=== PATIENT | female | born 1945 | race Caucasian/White ===

== ENCOUNTER → 2018-05-11 10:39 | Outpatient (CLI) | payer MEDICARE, BC, SELFPAY ==
--- NOTE | 2018-05-11 10:43 | MM_ITS ---
MM Dig screening mamm BI w/CAD ORDERING PHYSICIAN : Fran Tsang MD PATIENT AGE: 72 years GENDER: Female COMPARISON: . April 2017, March 2016, February 2015 Also September 2009 mammogram INDICATION: ITS.REASON: SCREENING no hormones no new complaints noncontributory family history Family history. Sister with breast cancer age 60. TECHNIQUE: Standard CC and MLO images were obtained. R2 CAD reviewed. FINDINGS: .. Minimal residual fibroglandular elements with moderate fatty replacement. No dominant mass nor suspicious calcifications. Prior studies are helpful and supportive stable mammogram with no significant new findings. LEFT BREAST:No significant new findings. Follow-up in one year adequate 3 or 4 small 3 benign-appearing grouping calcifications deep left breast cc view are perhaps slightly denser but otherwise stable since 2014,, 2016. Right breast. No new areas of concern. Follow-up in one year Small 4 mm stable nodule density superior upper-outer quadrant right breast measuring less than 5 mm-not concern and unchanged studies since 2013 IMPRESSION: . Stable bilateral mammogram with no significant new findings. Bilateral follow-up in one recommended. . BI-RADS Category: 2 Benign Finding(s) RECOMMENDED FOLLOW-UP: 1YR 1 YEAR FOLLOW-UP (A letter has been sent to the patient regarding results of the study.)
== END ==
PROVIDERS: PCP Family Medicine; Visit Provider Family Medicine
DX: Z12.31 Encounter for screening mammogram for malignant neoplasm of breast (principal)
CPT/HCPCS: 77067

== ENCOUNTER → 2018-05-13 11:58 | Outpatient (CLI) | payer MEDICARE, BC, SELFPAY ==
--- NOTE | 2018-05-13 12:06 | XR_ITS ---
XR hip LT 2-3V w/pelvis HISTORY: Left-sided pain, hip pain ITS.REASON: LT SCIATICA ORDERING PHYSICIAN: Fran Tsang MD PATIENT AGE: 72 years COMPARISON: None FINDINGS: No fracture or dislocation is evident. No significant degenerative change. No lytic or blastic change. Unremarkable soft tissues IMPRESSION: Negative hip
--- NOTE | 2018-05-13 12:06 | XR_ITS ---
EXAM: XR lumbar spine min 4V HISTORY: Low back pain radiating into the left hip ITS.REASON: LT SCIATICA ORDERING PHYSICIAN: Fran Tsang MD PATIENT AGE: 72 years COMPARISON: None FINDINGS: Normal alignment. No fracture or dislocation. No lytic or blastic change. No significant degenerative change. The disc spaces are preserved. There is diffuse vascular calcification IMPRESSION: Negative lumbar spine
== END ==
PROVIDERS: PCP Family Medicine; Visit Provider Family Medicine
DX: M54.32 Sciatica, left side (principal)
CPT/HCPCS: 72110; 73502

== ENCOUNTER 2019-01-31 08:00 | Outpatient (RCR) | payer MEDICARE, BC, SELFPAY | END 2019-01-31 08:05 | disposition home or self-care (01) | LOC: PT 08:00 | PROVIDERS: PCP Family Medicine; Visit Provider Orthopaedic Surgery | DX: S83.91XA Sprain of unspecified site of right knee, initial encounter (principal) | CPT/HCPCS: 97010; 97014; 97016; 97033; 97035; 97110; 97163; G0283 ==

== ENCOUNTER → 2019-05-15 08:06 | Outpatient (CLI) | payer MEDICARE, BC, SELFPAY ==
--- NOTE | 2019-05-15 08:08 | MM_ITS ---
PROCEDURE: MM DIG SCREENING MAMM BI W/CAD Patient Age:73Y CLINICAL INDICATION: SCREENING but no hormones. No new complaints.. Patient with prior bladder cancer. Family history. Sister with breast cancer age 70 COMPARISON: DMSB DIG MAMM-SCREEN AUGUSTINE from 02/26/2014 DMSB DIG MAMM-SCREEN AUGUSTINE from 03/12/2015 DMDXUAVL DIG MAMM-DX UNI ADD VIEWS-LT from 04/03/2015 DMSB DIG MAMM-SCREEN AUGUSTINE from 04/06/2016 DMSB DIG MAMM-SCREEN AUGUSTINE W/CAD from 04/28/2017 [facility] MM Dig screening mamm BI w/CAD from 05/11/2018 TECHNIQUE: Standard CC and MLO images were obtained. R2 CAD reviewed. FINDINGS: Minimal residual fibroglandular elements with no new dominant nor suspicious mass.. No suspicious calcifications. A the is A similar bilateral breast pattern with no new areas of concern. Scant stable minor asymmetry. Bilateral follow-up 1 year IMPRESSION: Stable bilateral mammogram with no new areas of concern. bilateral follow-up 1 year BI-RAD Category: 1 Negative FOLLOW-UP: 1YR 1 Year Follow-up the (A letter has been sent to the patient regarding results of the study.) Dictated by: Estrada Cunha MD 05/15/2019 16:03 Electronically signed by Estrada Cunha MD in [place] 05/15/2019 16:03
== END ==
PROVIDERS: PCP Family Medicine; Visit Provider Family Medicine
DX: Z12.31 Encounter for screening mammogram for malignant neoplasm of breast (principal)
CPT/HCPCS: 77067

== ENCOUNTER → 2020-02-12 08:24 | Outpatient (CLI) | payer MEDICARE, BC, SELFPAY ==
--- NOTE | 2020-02-12 08:30 | XR_ITS ---
PROCEDURE: XR DEXA AXIAL SKELETON CLINICAL HISTORY: OSTEOPENIA COMPARISON: KILO SALCIDO BONE3 BONE DENSITOMETRY(HIP:LT SPINE from 02/08/2017 FINDINGS: The right hip BMD is 0.720 with a T-score of -1.8. The left hip BMD is 0.788 with a T-score of -1.3. The lumbar spine BMD is 0.831 with a T-score of -2.0. Previously the lowest density was in the spine with a T-score of -1.9 IMPRESSION: This patient is considered osteopenic according to the World Health Organization criteria. Bone density is between 10 and 25 percent below young normal. Fracture risk is moderate. Treatment is advised. Based on these results a follow-up exam is recommended in 2 year. Dictated by: Don Nunez MD 02/13/2020 12:03 Don Nunez MD in [place] 02/13/2020 12:03
== END ==
PROVIDERS: PCP Family Medicine; Visit Provider Family Medicine
DX: M85.89 Other specified disorders of bone density and structure, multiple sites (principal)
CPT/HCPCS: 77080

== ENCOUNTER → 2020-05-16 08:12 | Outpatient (CLI) | payer MEDICARE, BC, SELFPAY ==
--- NOTE | 2020-05-16 08:14 | MM_ITS ---
PROCEDURE: MM DIG SCREENING MAMM BI W/CAD Referring Doctor: Fran Tsang Patient Age:74Y CLINICAL INDICATION: SCREENING 74-year-old. Patient with history of bladder cancer no hormones, no new complaints, Family history. Sister with breast cancer COMPARISON: MG DMSB DIGITAL MAMM-SCREEN BILATERAL from 01/28/2011 MG DMSB DIGITAL MAMM-SCREEN BILATERAL from 02/05/2012 MG DMSB DIG MAMM-SCREEN AUGUSTINE from 02/26/2014 MG DMSB DIG MAMM-SCREEN AUGUSTINE from 03/12/2015 MG DMDXUAVL DIG MAMM-DX UNI ADD VIEWS-LT from 04/03/2015 MG DMSB DIG MAMM-SCREEN AUGUSTINE from 04/06/2016 MG DMSB DIG MAMM-SCREEN AUGUSTINE W/CAD from 04/28/2017 MG [facility] MM Dig screening mamm BI w/CAD from 05/11/2018 MG MM DIG SCREENING MAMM BI W/CAD from 05/15/2019 TECHNIQUE: Standard CC and MLO images were obtained. R2 CAD reviewed. Bilateral digital breast tomosynthesis included. Additional axillary CC views both breast included FINDINGS: Lower density breast with [id number] residual fibroglandular elements.; scattered fibroglandular densities. Overall architecture is similar to previous study with no new dominant or suspicious mass. No suspicious calcifications. Right breast-no interval change Small stable nodular density lateral right breast 3.5 mm size-likely intramammary node Left breast-no new areas of concern. The asymmetric area density inferior breast on MLO view is at present on multiple previous studies-dating back to 2010. This area less evident on tomosynthesis views and dissipates on CC view.. Few punctate calcifications a left breast appear stable Bilateral follow-up 1 year recommended IMPRESSION: No significant new findings . Stable mammogram. Stable mild asymmetry . Follow-up 1 year recommended BI-RAD Category: 2 Benign Finding(s) FOLLOW-UP: 1YR 1 Year Follow-up (A letter has been sent to the patient regarding results of the study.) Dictated by: Estrada Cunha MD 05/26/2020 23:05 Estrada Cunha MD in [place] 05/26/2020 23:05
== END ==
PROVIDERS: PCP Family Medicine; Visit Provider Family Medicine
DX: Z12.31 Encounter for screening mammogram for malignant neoplasm of breast (principal)
CPT/HCPCS: 77063; 77067

== ENCOUNTER → 2021-02-17 09:15 | Outpatient (CLI) | payer MEDICARE, BC, SELFPAY | PROVIDERS: PCP Family Medicine; Visit Provider Nurse Practitioner | DX: Z20.822 Contact with and (suspected) exposure to COVID-19 (principal); U07.1 COVID-19 | CPT/HCPCS: C9803; U0003; U0005 ==

== ENCOUNTER → 2021-05-16 07:39 | Outpatient (CLI) | payer MEDICARE, BC, SELFPAY ==
--- NOTE | 2021-05-16 07:43 | MM_ITS ---
PROCEDURE INFORMATION: Exam: MG Bilateral Screening 3D Mammography Exam date and time: 05/16/2021 7:43 AM Age: 75 years old Clinical indication: Screening mammogram TECHNIQUE: Imaging protocol: Bilateral screening tomosynthesis and 2D mammography including computer-aided detection (CAD) when performed. COMPARISON: 1. MG MM DIG SCREENING MAMM BI W/CAD 05/16/2020 8:32 AM 2. MG MM DIG SCREENING MAMM BI W/CAD 05/15/2019 8:19 AM 3. MG [facility] MM Dig screening mamm BI w/CAD 05/11/2018 11:11 AM 4. MG DMSB DIG MAMM-SCREEN AUGUSTINE W/CAD 04/28/2017 9:47 AM FINDINGS: MAMMOGRAPHY: Breast composition: There are scattered areas of fibroglandular density. Mass: Stable benign-appearing subcentimeter nodules are present in the bilateral breast. No new or morphologically suspicious nodule has developed to suggest malignancy. Architectural distortion: No new or suspicious architectural distortion. Calcifications: Stable benign-appearing calcifications are present. No new or suspicious cluster of microcalcifications have developed. Asymmetric density: No new or suspicious asymmetric density is present Skin thickening: None. Axillary adenopathy: None. IMPRESSION: No mammographic evidence of malignancy. Recommend annual screening mammography unless otherwise clinically indicated. ASSESSMENT: BI-RADS category 2: Benign
== END ==
PROVIDERS: PCP Family Medicine; Visit Provider Family Medicine
DX: Z12.31 Encounter for screening mammogram for malignant neoplasm of breast (principal)
CPT/HCPCS: 77063; 77067

== ENCOUNTER → 2021-06-11 09:40 | Outpatient (CLI) | payer MEDICARE, BC, SELFPAY | PROVIDERS: PCP Family Medicine; Visit Provider Nurse Practitioner | DX: Z20.822 Contact with and (suspected) exposure to COVID-19 (principal) | CPT/HCPCS: C9803; U0003; U0005 ==

== ENCOUNTER → 2021-08-11 08:57 | Outpatient (CLI) | payer MEDICARE, BC, SELFPAY | PROVIDERS: Visit Provider Internal Medicine | DX: Z01.812 Encounter for preprocedural laboratory examination (principal); Z11.52 Encounter for screening for COVID-19; Z12.11 Encounter for screening for malignant neoplasm of colon | CPT/HCPCS: C9803; U0003; U0005 ==

== ENCOUNTER → 2021-09-08 08:52 | Outpatient (CLI) | payer MEDICARE, BC, SELFPAY | PROVIDERS: Visit Provider Internal Medicine | DX: Z11.52 Encounter for screening for COVID-19 (principal) | CPT/HCPCS: 36415; C9803; U0003; U0005 ==

== ENCOUNTER 2021-09-10 07:48 | Day surgery (SDC) | payer MEDICARE, BC, SELFPAY ==
[2021-08-06 13:59] VITALS: BMI 36.1
[2021-09-10 08:25] VITALS: BP 142/78; PULSE 68; RESP 18; TEMP 36.8; O2SAT 100
[2021-09-10 08:59] VITALS: O2SAT 100
--- NOTE | 2021-09-10 09:00 | P.PN_ITS ---
[facility] Anesthesia Checklist - Patient Identification Patient Identification: Arm Band - Structural Data Admitted From: Home Planned Operative Procedure/s: colonoscopy Consent for Planned Operative Procedure(s) Verified: Yes Verified Documents: Surgical Consent, History and Physical - NPO Status Verified Time NPO: 00:00 - Additional verifications Anesthesia Reactions: No - Airway Assessment C-Spine Mobility Assessed: Yes (mp2) TMJ Mobility Assessed: Yes Dentition: Good Dentition - Neurological Assessment Level of Consciousness: Awake, Alert - Anesthesia Plan Anesthesia Risk discussed: Yes Anesthesia Plan: Verified ASA Class: II Anesthesia Type: MAC [facility] History I have reviewed the patient's past medical history: Yes Medical History: Reports:: Cancer (bladder) Denies:: Diabetes Mellitus Type 1, Diabetes Mellitus Type 2, Internal Pacemaker, MRSA, Seizures *Have you ever received a pneumonia vaccine?: Yes *Have you received a flu vaccine this season?: Yes Anesthesia experience/problems:: nac Laterality Cases: Right: Partial Knee Replacement Other Surgeries: Yes: Colonoscopy, Colon Resection, Other. No: Pacemaker Amputation: No - *Social History Last grade of school completed: Some college Smoking Status: Former smoker Alcohol Intake: current Alcohol Intake Frequency:: a few times a week Substance Use Type: denies use *Occupational Status:: retired Housing: house Household Members: spouse *Travel in the last 8 weeks: None Family Hx:: No significant family history
[2021-09-10 09:25] VITALS: BP 130/60; PULSE 65; RESP 18; TEMP 36.7; O2SAT 96
--- NOTE | 2021-09-10 09:25 | P.PCN_ITS ---
- Procedure: Date: 09/10/21 Patient Date of :: 1945 Procedure Performed:: Colonoscopy Indications:: The patient is a 76 year old who presents for surveillance colonoscopy. The patient reports last colonoscopy to be close to 10 years ago. She reports a hist ory of partial colectomy for removal of a colon polyp. She denies personal history or family history of colon cancer. Performing Provider:: Jl Keene MD Referring Provider:: Alfred Tsang MD Sedation:: See RN notes Procedure:: After placing the patient in the left lateral decubitus position, the colonoscopy was gently inserted into the rectum and under direct visualization advanced to the cecum which was identified by transillumination in the right lower quadrant, identification of the ileocecal valve, appendiceal orifice, and cecal strap. Color, texture, mucosa, and anatomy of the colon were carefully examined with the scope. Findings:: Anal canal: normal Rectum: normal Sigmoid colon: normal without polyps or inflammatory changes Descending colon: normal without polyps or inflammatory changes Splenic flexure: normal Transverse colon: normal without polyps or inflammatory changes Hepatic flexure: normal Ascending colon: normal without polyps or inflammatory changes Cecum: normal Terminal ileum: not visualized Floppy colon Recommendations:: Reassuring examination In view of age, no further surveillance colonoscopy can be recommended Complications:: None Estimated blood obtained (mL): 0
[2021-09-10 09:35] VITALS: BP 142/85; PULSE 60; RESP 18; O2SAT 99
[2021-09-10 09:45] VITALS: BP 135/71; PULSE 58; RESP 18; O2SAT 99
[2021-09-10 09:55] VITALS: BP 125/80; PULSE 59; RESP 18; O2SAT 98
== END 2021-09-10 10:11 | disposition home or self-care (01) ==
LOC: OUTP 07:50
PROVIDERS: PCP Family Medicine; Visit Provider Internal Medicine
PROC: 0DJD8ZZ Inspection of Lower Intestinal Tract, Via Natural or Artificial Opening Endoscopic (ICD-10-PCS; CPT 45378; principal; 2021-09-10 09:00)
DX: Z12.11 Encounter for screening for malignant neoplasm of colon (principal); Z86.010 Personal history of colon polyps; K56.2 Volvulus; Z85.51 Personal history of malignant neoplasm of bladder; Z79.899 Other long term (current) drug therapy
CPT/HCPCS: G0121

== ENCOUNTER → 2022-02-12 09:19 | Outpatient (CLI) | payer MEDICARE, BC, SELFPAY ==
--- NOTE | 2022-02-12 09:24 | XR_ITS ---
FINAL REPORT TECHNIQUE: Bone densitometry calculations of the lumbar spine and left hip were obtained. CLINICAL HISTORY: post menopausal COMPARISON: 02/12/2020 FINDINGS: Using L1-4, the bone mineral density of the spine is 0.833 g/cm2, was 0.831 g/cm2 corresponding to T-score of -1.9, was -2.0. Using the left hip, the bone mineral density of the femoral neck is 0.664 g/cm2, was 0.788 g/cm2 corresponding to a T-score of 1.7, was -1.3 Using the right hip, the bone mineral density of the femoral neck is 0.717 g/cm2, was 0.720 g/cm2 corresponding to a T-score of the 1.8, was -1.8 NOTE: T-score: Standard deviation compared with peak bone mass of young adult mean. *Following the recommendations of the International Society of Bone densitometry, classification of hip BMD is based on the lower of two T-scores; total hip or femoral neck. IMPRESSION: Diminished bone mineral density of the lumbar spine and left hip consistent with osteopenia. FRAX data reports major osteoporotic fracture of 10% and hip fracture of 1.8%. Reviewed, Interpreted and Dictated by Juan Ramon Berkowitz MD Transcribed by Carolyne Robles Authenticated and . [facility]
== END ==
PROVIDERS: PCP Family Medicine; Visit Provider Family Medicine
DX: Z78.0 Asymptomatic menopausal state (principal); M85.89 Other specified disorders of bone density and structure, multiple sites
CPT/HCPCS: 77080

== ENCOUNTER → 2022-05-29 07:45 | Outpatient (CLI) | payer MEDICARE, BC, SELFPAY ==
--- NOTE | 2022-05-29 07:50 | MM_ITS ---
PROCEDURE INFORMATION: Exam: MG Bilateral Screening 3D Mammography Exam date and time: 05/29/2022 8:09 AM Age: 76 years old Clinical indication: Screening examination. Her sister had breast cancer. TECHNIQUE: Imaging protocol: Bilateral Screening tomosynthesis and 2D mammography including computer-aided detection (CAD) when performed. COMPARISON: 1. MG MM DIG SCREENING MAMM BI W/CAD 05/16/2021 7:59 AM 2. MG MM DIG SCREENING MAMM BI W/CAD 05/16/2020 8:32 AM 3. MG MM DIG SCREENING MAMM BI W/CAD 05/15/2019 8:19 AM 4. MG [facility] MM Dig screening mamm BI w/CAD 05/11/2018 11:11 AM FINDINGS: MAMMOGRAPHY: Breast composition: There are scattered areas of fibroglandular density. Mass: Click no suspicious mass. Architectural distortion: None. Calcifications: No suspicious calcifications. Asymmetric density: None. Skin thickening: None. Axillary adenopathy: None. IMPRESSION: No mammographic evidence of malignancy. Annual screening is recommended unless otherwise clinically indicated. ASSESSMENT: BI-RADS Category 1: Negative
== END ==
PROVIDERS: PCP Family Medicine; Visit Provider Family Medicine
DX: Z12.31 Encounter for screening mammogram for malignant neoplasm of breast (principal)
CPT/HCPCS: 77063; 77067

== ENCOUNTER → 2022-06-11 10:32 | Outpatient (CLI) | payer MEDICARE, BC, SELFPAY ==
--- NOTE | 2022-06-11 10:36 | XR_ITS ---
FINAL REPORT CLINICAL HISTORY: Left hip pain COMPARISON: 05/13/2018 FINDINGS: LEFT HIP 3 views were obtained including an AP pelvis. There is no acute fracture or dislocation. The joint spaces are intact. There is no soft tissue abnormality. IMPRESSION: No acute bony abnormality. Reviewed, Interpreted and Dictated by Dipti Reid MD Transcribed by Yandy See Authenticated and [facility]
== END ==
PROVIDERS: PCP Family Medicine; Visit Provider Family Medicine
DX: M25.552 Pain in left hip (principal)
CPT/HCPCS: 73502

== ENCOUNTER → 2023-03-08 12:30 | Outpatient (CLI) | payer MEDICARE, BC, SELFPAY ==
--- NOTE | 2023-03-08 12:42 | XR_ITS ---
FINAL REPORT CLINICAL HISTORY: SCIATIA LEG PAIN COMPARISON: 06/11/2022 FINDINGS: LEFT HIP 2 views of the left hip are obtained. There is no acute fracture or dislocation. Visualized joint spaces are normally aligned. There are mild degenerative changes of the hips bilaterally and lower lumbar spine. Mild vascular calcifications are noted. There is no acute soft tissue abnormality. IMPRESSION: No acute bony abnormality. Reviewed, Interpreted and Dictated by Joel Murphy III, MD Transcribed by Aletha Robles Authenticated and [facility]
--- NOTE | 2023-03-08 12:42 | XR_ITS ---
FINAL REPORT CLINICAL HISTORY: SCIATIA LEG PAIN FINDINGS: 5 views of the lumbar spine were obtained. There is no evidence of fracture or dislocation. The vertebral alignment is normal. There are multilevel degenerative changes. No paraspinous soft tissue abnormalities identified. IMPRESSION: No acute bony abnormality. Reviewed, Interpreted and Dictated by Joel Murphy III, MD Transcribed by Aletha Robles Authenticated and [facility]
== END ==
PROVIDERS: PCP Family Medicine; Visit Provider Family Medicine
DX: M54.32 Sciatica, left side (principal)
CPT/HCPCS: 72110; 73502

== ENCOUNTER 2023-06-24 15:29 | Outpatient (CLI) | payer MEDICARE, BC, SELFPAY ==
--- NOTE | 2023-06-24 15:34 | MR_ITS ---
FINAL REPORT TECHNIQUE: Multiplanar MR without contrast CLINICAL HISTORY: LUMBAR RADICULOPATHY pain down left leg FINDINGS: Sagittal images show normal vertebral height. Alignment is normal. Marrow signal pattern is unremarkable. L1-2: Unremarkable L2-3: Unremarkable L3-4: Unremarkable L4-5: Minimal annular disc bulge. Moderate facet overgrowth. Mild central canal stenosis and mild bilateral neural foraminal narrowing. L5-S1: Unremarkable IMPRESSION: Degenerative disc disease at L4-5. Reviewed, Interpreted and Dictated by Denise Ojeda MD Transcribed by Carolyne Robles Authenticated and [facility]
== END 2023-06-24 23:59 ==
LOC: RAD 15:29
PROVIDERS: PCP Family Medicine; Visit Provider Family Medicine
DX: M54.16 Radiculopathy, lumbar region (principal)
CPT/HCPCS: 72148; 76376

== ENCOUNTER 2023-07-07 15:43 | Outpatient (CLI) | payer MEDICARE, BC, SELFPAY ==
--- NOTE | 2023-07-07 16:07 | MM_ITS ---
PROCEDURE INFORMATION: Exam: MG Bilateral Screening 3D Mammography Exam date and time: 07/07/2023 3:53 PM Age: 77 years old Clinical indication: Screening mammogram TECHNIQUE: Imaging protocol: Bilateral Screening tomosynthesis and 2D mammography including computer-aided detection (CAD) when performed. COMPARISON: 1. MG MM DIG SCREENING MAMM BI W/CAD 05/29/2022 8:09 AM 2. MG MM DIG SCREENING MAMM BI W/CAD 05/16/2021 7:59 AM 3. MG MM DIG SCREENING MAMM BI W/CAD 05/16/2020 8:32 AM 4. MG MM DIG SCREENING MAMM BI W/CAD 05/15/2019 8:19 AM FINDINGS: MAMMOGRAPHY: Breast composition: There are scattered areas of fibroglandular density. Mass: None. Architectural distortion: No new or suspicious architectural distortion. Calcifications: No new or suspicious calcifications are present Asymmetric density: No new or suspicious asymmetric density is present Skin thickening: None. Axillary adenopathy: None. IMPRESSION: No mammographic evidence of malignancy. Recommend annual screening mammography unless otherwise clinically indicated. ASSESSMENT: BI-RADS category 1: Negative
== END 2023-07-07 23:59 ==
PROVIDERS: PCP Family Medicine; Visit Provider Family Medicine
DX: Z12.31 Encounter for screening mammogram for malignant neoplasm of breast (principal)
CPT/HCPCS: 77063; 77067

== ENCOUNTER 2023-08-26 08:00 | Outpatient (RCR) | payer MEDICARE, BC, SELFPAY ==
--- NOTE | 2023-07-15 10:27 | HMH.PTOPEV ---
PT Outpatient Evaluation Rehab PT Outpatient Evaluation Start: 07/15/23 09:06 Freq: Status: Active Protocol: Document 07/15/23 09:07 CHRISTIAN (Rec: 07/15/23 10:27 CHRISTIAN [id number]) E-signed By Cholo Cochran, PT Outpatient Therapy Subjective History Subjective History Pt reports acute onset left LE pain and weakness beginning ~ 3 weeks ago caused by 'a fall where I yoshi rolled out into my yard.' Pt reports 'I think the weakness caused the fall because my left leg felt like it gave out.' Pt reports ~3 month h/o left LE weakness, N& T, and intermittent pain from hip to foot, denies LBP. Recent MRI of lumbar spine reveals L4-5 DDD. New diagnosis of cancer in past 12 No months? Chief Complaint Pain,Stiff,Paresthesia, Weakness Symptom Type Ache,Throb,Dull,Numbness, Tingling Symptoms Relieved By Rest/Positioning,Heat Symptoms Aggravated By Physical Activity,Walking Prior Functional Limitations Housework,Standing,Walking Current Functional Limitations Housework,Standing,Walking Symptom Description Constant but Variable Level of pain today (0-10) 5 Pain scale - at its best (0-10) 5 Pain scale - at its worst (0-10) 8 Lumbopelvic Eval Posture Thoracic Spine Posture Standing Position Neutral Lumbar Spine Posture Standing Position Neutral Assistive device Assistive Devices None / NA Gait Observation General Gait Pattern Observation Antalgic Gait Palapation tenderness left lumbar spinal tenderness Yes: 0-1/4 paraspinal tenderness Yes: 3/4 buttock tenderness Yes: 3/4 Lumbar/Sacral Palpation Findings Tenderness,Muscle Guarding Accessory Movement L-spine Vertebrae Accessory Movements Central P/A [place] that Elicit Symptoms L4 left L5 left Range of Motion Lumbar Spine Active Flexion Range of 0-80 Motion (degrees) Lumbar Spine Active Extension Range of 0-30 Motion (degrees) Left Lumbar Spine Lateral Flexion Active 0-25 Range of Motion (degrees) Right Lumbar Spine Lateral Flexion 0-25 Active Range of Motion (degrees) Lumbar Spine ROM Limitations Soft Tissue Tightness Manual Muscle Test Right Knee Extension Strength Grade 5 Normal Knee Flexion Strength Grade 5 Normal Hip Flexion Strength Grade 5 Normal Hip Abduction Strength Grade 4 Good Hip Adduction Strength Grade 4 Good Extensor Hallucis Longus Strength Grade 5 Normal Ankle Dorsiflexion Strength Grade 5 Normal Gastronemius/Soleus Strength Grade 5 Normal Left Knee Extension Strength Grade 4 Good Knee Flexion Strength Grade 4 Good Hip Flexion Strength Grade 4- Good- Hip Abduction Strength Grade 4- Good- Hip Adduction Strength Grade 4 Good Extensor Hallucis Longus Strength Grade 5 Normal Ankle Dorsiflexion Strength Grade 5 Normal Gastronemius/Soleus Strength Grade 5 Normal Special Tests Hip Piriformis Test Negative Right,Positive Left Sciatic Nerve Tension Test Negative Right,Positive Left Lumbar Long [place] Distraction Test/Manual Negative Traction Oswestry Index Section 1 Pain Intensity The pain comes and goes and is severe Section 2 Personal Care (Washing,Dresing) change my way of washing or dressing in order to avoid pain Section 3 Lifting lifting heavy weights off the floor, but I can manage light to medium Section 4 Walking I have some pain when walking but it does not increase with distance Section 5 Sitting I can sit in any chair for as long as I like Section 6 Standing I have some pain on standing, but it does not increase with time Section 7 Sleeping I get no pain in bed Section 8 Social Life My social life is normal and gives me no extra pain Section 9 Traveling I get some pain when traveling , but none of my usual forms of travel m Section 10 Changing Degreee of Pain My pain fluctuates, but overall is definitely getting better Score and Risk Level Oswestry Sc 12 Oswestry Risk Level Mild Disability Outpatient Therapy Assessment Impairments Problems/Impairmments Palpation Tenderness,Impaired Range of Motion,Impaired Strength,Impaired Gait Pattern ,Impaired Walking,Impaired Standing,Impaired Household Care,Subjective C/O Pain, Impaired Self Care/Self Management Prognosis Rehab Potential Good Clinical Impression Consistent with Diagnosis Yes Short Term Goals Number of Weeks 4 Decreased Palpation Tenderness Yes: 1-2/4 left lumbar mm Increase Range of Motion Yes: 75% of WFL LUMABR AROM Increase Strength Yes: 4/5 LLE MM Increase Ability to Walk Yes: 30MIN Increase Ability to Stand Yes: 30MIN Improve Ability For Household Care Yes: 30MIN Decrease Subjective C/O Pain Yes: 3/10 W/ABOVE ACTIVITIES Patient to be Ind w/ HEP 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 Number of Weeks 6-8 Decreased Palpation Tenderness Yes: 0-1/4 LEFT LUMBAR, GLUT MM Increase Range of Motion Yes: WFL LUMBAR AROM Increase Strength Yes: 4+-5/5 LLE MM Improve Gait Pattern without Assistive Yes: WFL Device Increase Ability to Walk Yes: 60MIN Increase Ability to Stand Yes: 60MIN Improve Ability For Household Care Yes: 60MIN Improve Oswestry Score Yes: 8-10 Decrease Subjective C/O Pain Yes: W/ABOVE ACTIVITIES Patient to be Ind w/ Advanced HEP Yes Outpatient Therapy Plan of Care Treatment Plan May Include Therapeutic Exercise Including Home Yes Exercise Program Manual Therapy Techniques Yes Neuromuscular Re-education Yes Therapeutic Activities to Return to Yes Previous Functional/Work Level Gait Training Yes ADL/Self Care Education Yes Mechanical Traction Yes Dry Needling Yes Thermal Modalities Yes Electrical Stimulation Yes Ultrasound/Phonophoresis Yes Eval/Re-Eval Yes Frequency Times per week 2-3 Duration Number of Weeks 6-8 Addendums This patient is a candidate for social No or vocational rehab? Patient/Guardian verbally acknowledges Yes understanding of treatment program and consents to further treatment? Patient/Guardian verbally acknowledges Yes understanding of diagnosis, prognosis and goals for treatment? Eval Complexity PT Charges 36990 - Moderate Complexity Shoulder/Elbow Eval Shoulder Objective Measurements Elbow Objective Measurements PHYSICIAN CERTIFICATION: I certify the specified therapy services for Camila Ramirez are required, authorized, and reviewed every 30 days.
--- NOTE | 2023-08-17 08:25 | HMH.RHREAS ---
Rehab Reassessment Rehab OP Re-assessment Start: 07/15/23 09:06 Freq: Status: Active Protocol: Document 08/17/23 08:06 CHRISTIAN (Rec: 08/17/23 08:24 CHRISTIAN [id number]) E-signed By Cholo Cochran, PT Rehab Re-assessment Subjective Subjective Pt reports 0/10 LBP this am and 3/10 left knee pain on VAS this am, and feels 'pretty close to 100% better' overall since I eval Objective Objective Notes MMT: LEFT HIP FLX 4-4+/5, L HIP ABD 4/5, L HIP ADD 5/5, L HIP IR,ER 4-4+/5, L KNEE EXT 5 /5, L KNEE FLX 4+-5/5 TTP: LEFT LUMBAR PARASPINALS 0 /4, MIDLINE LUMBAR SPINE 0/4, LEFT KNEE MEDIAL JT LINE 1/4, L KNEE LATERAL JT LINE 0/4 GAIT: MILDLY ANTLAGIC LLE AROM: LUMABR SPINE WFL ALL DIRECTIONS, LEFT KNEE FLX 0- 131 Assessment Progress Assessment Progressing as Expected Assessment Notes SIGNIFICANT IMPROVEMENTS IN AROM, STRENGTH, AND TTP Patient goals met STG'S 12/29 LTG'S 10/31 Goals Not Met LTG'S 10 Plan Plan Pt to continue w/skilled P.T. to make further improvements in ROM, strength, and TTP to allow for optimal function Frequency of Therapy 1-2x/wk Duration of therapy 4-6wks Time and Billing Re-Eval Time 12 Re-Eval Billing Units 1 PHYSICIAN CERTIFICATION: I certify the specified therapy services for Camila Ramirez are required, authorized, and reviewed every 30 days.
== END 2023-08-26 09:15 | disposition home or self-care (01) ==
LOC: PT 08:00
PROVIDERS: PCP Family Medicine; Visit Provider Family Medicine
DX: M54.50 Low back pain, unspecified (principal); M54.16 Radiculopathy, lumbar region
CPT/HCPCS: 97010; 97014; 97110; 97163; 97164; 97530; G0283

== ENCOUNTER 2024-02-16 09:07 | Outpatient (CLI) | payer MEDICARE, BC, SELFPAY ==
--- NOTE | 2024-02-16 09:10 | XR_ITS ---
FINAL REPORT TECHNIQUE: Bone densitometry calculations of the lumbar spine and left hip were obtained. CLINICAL HISTORY: SCR FINDINGS: Using L1-4, the bone mineral density of the spine is 0.83 g/cm2, corresponding to T-score of -2.0. Using the left hip, the bone mineral density of the femoral neck is 0.66 g/cm2, corresponding to a T-score of -2.3. NOTE: T-score: Standard deviation compared with peak bone mass of young adult mean. *Following the recommendations of the International Society of Bone densitometry, classification of hip BMD is based on the lower of two T-scores; total hip or femoral neck. IMPRESSION: Diminished bone mineral density of the lumbar spine and left hip consistent with osteopenia. Reviewed, Interpreted and Dictated by Denise Ojeda MD Transcribed by Aletha Robles Authenticated and [facility]
== END 2024-02-16 23:59 | disposition home or self-care (01) ==
LOC: RAD 09:08
PROVIDERS: PCP Family Medicine; Visit Provider Family Medicine
DX: M81.0 Age-related osteoporosis without current pathological fracture (principal)
CPT/HCPCS: 77080

== ENCOUNTER 2024-07-10 12:52 | Outpatient (CLI) | payer MEDICARE, BC, SELFPAY ==
--- NOTE | 2024-07-10 12:57 | MM_ITS ---
PROCEDURE INFORMATION: Exam: MG Bilateral Screening 3D Mammography Exam date and time: 07/10/2024 1:50 PM Age: 78 years old Clinical indication: Screening mammogram TECHNIQUE: Imaging protocol: Bilateral Screening tomosynthesis and 2D mammography including computer-aided detection (CAD) when performed. COMPARISON: 1. MG MM DIG SCREENING MAMM BI W/CAD 07/07/2023 3:53 PM 2. MG MM DIG SCREENING MAMM BI W/CAD 05/29/2022 8:09 AM 3. MG MM DIG SCREENING MAMM BI W/CAD 05/16/2021 7:59 AM 4. MG MM DIG SCREENING MAMM BI W/CAD 05/16/2020 8:32 AM FINDINGS: MAMMOGRAPHY: Breast composition: There are scattered areas of fibroglandular density. Mass: Stable benign-appearing subcentimeter nodules are present in the bilateral breasts. No new or morphologically suspicious nodule has developed to suggest malignancy. Architectural distortion: No new or suspicious architectural distortion. Calcifications: No new or suspicious calcifications are present Asymmetric density: No new or suspicious asymmetric density is present Skin thickening: None. Axillary adenopathy: None. IMPRESSION: No mammographic evidence of malignancy. Recommend annual screening mammography unless otherwise clinically indicated. ASSESSMENT: BI-RADS category 2: Benign.
== END 2024-07-10 23:59 | disposition home or self-care (01) ==
LOC: RAD 12:54
PROVIDERS: PCP Family Medicine; Visit Provider Family Medicine
DX: Z12.31 Encounter for screening mammogram for malignant neoplasm of breast (principal)
CPT/HCPCS: 77063; 77067

== ENCOUNTER 2024-08-11 10:29 | Outpatient (CLI) | payer MEDICARE, BC, SELFPAY ==
[2024-08-11 10:35] LABS: Anti-Centromere B Antibodies ND; Anti-DNA (DS) Ab Qn ND; Anti-Jo-1 ND; Antichromatin Antibodies ND; Antiscleroderma-70 Antibodies ND; Lyme Ab IgM CIA ND; Lyme IgG CIA ND; RNP Antibodies ND; Sjogren's Anti-SS-A ND; Sjogren's Anti-SS-B ND
[2024-08-11 10:55] LABS: Basophils # 0.1 K/mm3 (0-0.2); Basophils % 0.9 % (0.1-2.0); Eosinophils % 0.6 % (0.1-12.0); Hematocrit 41.7 % (37.0-47.0); Hemoglobin 14.3 g/dL (12.2-16.2); Lymphocytes # 2.1 K/mm3 (0.7-4.5); Lymphocytes % 29.4 % (10-50); Mean Corpuscular HGB Conc 34.3 g/dL (31.8-35.4); Mean Corpuscular Hemoglobin 32.6 pg (27.0-31.2); Mean Platelet Volume 11.8 fl (7.4-10.4); Monocytes # 0.3 K/mm3 (0.1-1.0); Monocytes % 4.6 % (1.7-9.3); Neutrophils # 4.5 K/mm3 (1.8-7.8); Neutrophils % 64.4 % (37.0-80.0); Platelet Count 159 K/mm3 (142-424); Red Blood Count 4.39 M/mm3 (4.20-5.40); Red Cell Distribution Width 11.7 % (11.5-17.5)
[2024-08-11 11:16] LABS: Alanine Aminotransferase 17 U/L (12-78); Albumin Level 4.8 g/dl (3.5-5.0); Alkaline Phosphatase 71 U/L (38-126); Anion Gap 10.1 mEq/L (5-15); Aspartate Amino Transferase 25 U/L (14-36); Bilirubin,Total 0.8 mg/dl (0.2-1.3); Blood Urea Nitrogen 14 mg/dl (7-17); Calcium 9.6 mg/dl (8.4-10.2); Carbon Dioxide 26 mmol/L (22.0-30.0); Chloride 106 mmol/L (98-107); Estimated Glomerular Filt Rate 69 ml/min (>60); GFR (African American) 84 ML/MIN (>60); Globulin 2.4 g/dL (1.3-3.2); Glucose 94 mg/dl (74-100); Potassium 4.1 mmoL/L (3.5-5.1); Sodium 138 mmol/L (136-145); Total Protein,Serum 7.2 g/dl (6.3-8.2)
[2024-08-11 11:22] LABS: C-Reactive Protein 0.6 mg/L (0-4)
[2024-08-11 11:29] LABS: Erythrocyte Sedimentation Rate 14 mm/hr (0-30)
[2024-08-11 11:47] LABS: Thyroid Stimulating Hormone 0.78 uIU/mL (0.465-4.68)
[2024-08-11 12:06] LABS: Vitamin B12 282 pg/mL (239-931)
[2024-08-11 12:25] LABS: Folate 7.44 ng/mL
[2024-08-11 13:58] LABS: RPR W/RFX Titers Nonreactive (Nonreactive)
[2024-08-12 10:10] LABS: Lyme Ab CIA Negative (Negative)
[2024-08-14 15:03] LABS: Antinuclear Antibodies (ANA) Negative (Negative)
== END 2024-08-11 23:59 | disposition home or self-care (01) ==
LOC: LAB 10:30
PROVIDERS: PCP Family Medicine; Visit Provider Specialist
DX: G31.84 Mild cognitive impairment of uncertain or unknown etiology (principal)
CPT/HCPCS: 36415; 80053; 82607; 82746; 84443; 85025; 85651; 86038; 86140; 86592; 86618

== ENCOUNTER 2024-08-21 08:21 | Outpatient (CLI) | payer MEDICARE, BC, SELFPAY ==
--- NOTE | 2024-08-21 08:30 | MR_ITS ---
FINAL REPORT TECHNIQUE: Multiplanar MR, without and with gadolinium enhancement CLINICAL HISTORY: increased memory loss hx of bladder cancer 15 ml prohance FINDINGS: There is edema with sulcal effacement in the right frontal lobe with very faint abnormal enhancement on the postcontrast images. Some of the enhancement may be vascular in nature. There is a 7 mm cystic type area within the center portion of the edema with no associated enhancement. Findings are suspicious for neoplasm such as low or intermediate grade glioma, less likely, subacute infarct, and unlikely metastatic disease. There is mild midline shift associated with the process measuring up to 3 mm. There is moderate generalized atrophy and moderate chronic microvascular change. The ventricles are normal. Diffusion sequences show no signal abnormality to indicate acute infarct. IMPRESSION: Parenchymal edema with mass effect on the right frontal lobe suspicious for underlying neoplasm with faint enhancement. Favor glioma over subacute infarct or metastatic disease. There is no associated hemorrhage. Reviewed, Interpreted and Dictated by Denise Ojeda MD Transcribed by Yandy See Authenticated and . [facility]
[2024-08-21] MEDS: GADOTERIDOL INJ 20ML SYRINGE 15 ML IV (09:32)
[2024-08-21] MEDS: SODIUM CHLORIDE 0.9% 10ML SYR (RAD ONLY) 10 ML IV (09:32)
== END 2024-08-21 23:59 | disposition home or self-care (01) ==
LOC: RAD 08:22
PROVIDERS: PCP Family Medicine; Visit Provider Specialist
DX: G31.84 Mild cognitive impairment of uncertain or unknown etiology (principal); H57.89 Other specified disorders of eye and adnexa
CPT/HCPCS: 70553; A9576